=== PATIENT | male | born 1955 | race Caucasian/White ===

== ENCOUNTER → 2016-05-29 | Outpatient (CLI) | payer BC | LOC: GMAM 10:34 | PROVIDERS: ATTEND Family Medicine | DX: Z12.5 Encounter for screening for malignant neoplasm of prostate (principal) ==

== ENCOUNTER 2016-07-27 16:22 | Emergency (ER) | payer BC | END 2016-07-27 17:05 | disposition left against medical advice (07) | LOC: ER 16:22 | DX: Z53.21 Procedure and treatment not carried out due to patient leaving prior to being seen by health care provider (principal) ==

== ENCOUNTER → 2017-11-10 | Outpatient (CLI) | payer BC | LOC: GMAM 12:10 | PROVIDERS: ATTEND Family Medicine | DX: E29.1 Testicular hypofunction (principal) ==

== ENCOUNTER → 2018-06-05 | Outpatient (CLI) | payer BC | LOC: GMAM 10:49 | PROVIDERS: ATTEND Family Medicine | DX: Z12.5 Encounter for screening for malignant neoplasm of prostate (principal) ==

== ENCOUNTER → 2018-12-15 | Outpatient (CLI) | payer BC | LOC: GMAM 10:56 | PROVIDERS: ATTEND Family Medicine | DX: Z12.5 Encounter for screening for malignant neoplasm of prostate (principal) ==

== ENCOUNTER 2019-02-05 09:52 | Emergency (ER) | payer BC ==
[2019-02-05] MEDS ORDERED: ASPIRIN (CHEWABLE) 81 MG TAB PO ONE (10:03)
[2019-02-05 10:04] VITALS: TEMP 100.2
[2019-02-05] MEDS ORDERED: NITROGLYCERIN 0.4 MG 25 EA TAB SL ONE (10:05)
--- NOTE | 2019-02-05 10:10 | ED.PDOC ---
History of Present Illness - General Chief Complaint: Chest Pain/MD Stated Complaint: Chest discomfort Time Seen by Provider: 02/05/19 10:02 Source: patient, family Exam Limitations: no limitations Additional Information: Mister Herrera is a 63-year-old male who presents to the ED with chief complaint of chest pain. He indicates the pain began in the middle of the night last night after he got up to go to the bathroom and has persisted. Pain is 5 out of 10 in intensity and he describes it as a pressure. Pain waxes and wanes but has been constant. Mild shortness of breath, negative nausea, vomiting or abdominal pain. Patient indicates that he does not have an adverse heart history and that he has never had a heart attack or any diagnosed CAD. Patient has hypertension and is on labetalol but he has not taken his medication this morning. Patient is not a smoker. - History of Present Illness Allergies/Adverse Reactions: Allergies NO KNOWN ALLERGY Allergy (Verified 02/05/19 10:01) Home Medications: Ambulatory Orders Albuterol Sulfate [Proair Hfa] 2 puff INH QID 02/05/19 Amlodipine Besylate 10 mg PO DAILY 02/05/19 Atenolol [Tenormin] 50 mg PO DAILY 02/05/19 Losartan Potassium 100 mg PO DAILY 02/05/19 Montelukast [Singulair] 10 mg PO DAILY 02/05/19 Pantoprazole Sodium 40 mg PO DAILY 02/05/19 Review of Systems - Review of Systems Constitutional: States: no symptoms reported. Denies: chills, fever EENTM: States: no symptoms reported. Denies: blurred vision Respiratory: States: short of breath. Denies: orthopnea, wheezing Cardiology: States: see HPI. Denies: palpitations, syncope Gastrointestinal/Abdominal: States: no symptoms reported. Denies: nausea, vomiting Genitourinary: States: no symptoms reported. Denies: dysuria Musculoskeletal: States: no symptoms reported. Denies: back pain Skin: States: no symptoms reported Neurological: States: no symptoms reported. Denies: anxiety, headache, paresthesia Endocrine: States: no symptoms reported Hematologic/Lymphatic: States: no symptoms reported All other Systems: Reviewed and Negative Past Medical History (General) - Patient Medical History Hx Stroke: No Hx Asthma: No - Seasonal allergies Hx Congestive Heart Failure: No Hx Hypertension: Yes Hx Diabetes: No Hx Gastroesophageal Reflux: Yes Hx MRSA: No - Vaccination History Hx Tetanus, Diphtheria Vaccination: No Hx Influenza Vaccination: No Hx Pneumococcal Vaccination: No - Social History Hx Tobacco Use: No Hx Alcohol Use: Yes - Occasional beer Family Medical History - Family History Father Living Status: Age at (years of age): 57 Cause of : MD Physical Exam - Physical Exam General Appearance: Alert, Comfortable, No apparent distress Eyes, Ears, Nose, Throat Exam: normal ENT inspection, pharynx normal Neck: non-tender, full range of motion, supple, normal inspection Respiratory: chest non-tender, lungs clear, normal breath sounds, no respiratory distress, no accessory muscle use Cardiovascular/Chest: normal peripheral pulses, no edema, no gallop, no murmur, tachycardia Gastrointestinal/Abdominal: normal bowel sounds, non tender, soft, no organomegaly Extremity: normal range of motion, non-tender, normal inspection, no pedal edema Neurologic: counter helper II-XII nml as tested, no motor/sensory deficits, normal mood/affect Skin Exam: normal color, warm/dry Progress - Progress Progress: 02/05/19 1000 differential diagnoses to include but not limited to:ACS and MD pneumonia PE 02/05/19 12:27 Patient is feeling well at this time and is chest pain-free. His workup is unremarkable including his troponin EKG and chest x-ray. Patient's d-dimer is negative and there is low clinical concern for PE. Patient remains slightly tachycardic at 101 and patient indicates that this is from anxiety from being in the ED. Patient describes his pain as a heartburn and believes that his symptoms are heartburn related and not ACS related. he has not taken his heartburn medication today and indicates he will take his PPI when he gets home. Patient is a low risk HEART score (1 point age, 1 point risk factor, 1 point history) and I believe he is safe for discharge with follow-up outpatient. I have specifically discussed with patient need for close cardiology follow-up with stress testing. Patient indicates he had a stress test done approximately 5 years ago that was normal. I have given patient's outpatient referral to a senior electrical project manager. Vital signs stable, patient NAD and looks clinically well and is safe for discharge with outpatient follow-up. Follow-up instructions, discharge instructions and return to ED precautions discussed with patient, Patient voices understanding and willingness to comply with instructions. All laboratory and radiographic results have been discussed with the patient, and all questions answered.. Patient happy with plan. - EKG/XRAY/CT Comments: Sinus tach, rate 105, nl axis, nl QRS, nl ST segments, nl T waves. Departure - Departure Clinical Impression: Tachycardia, Chest pain, unspecified Time of Disposition: 12:24 Disposition: Discharge to Home or Self Care Condition: Good Departure Forms: ED Discharge - Pt. Copy, Patient Portal Self Enrollment Instructions: DI for Chest Pain, Chest Pain Referrals: Dmitriy Mann MD [Primary Care Provider] - 1-2 Weeks EDISON HAYNES MD [Consulting Staff] - 1-2 Weeks Home Medications: Ambulatory Orders Albuterol Sulfate [Proair Hfa] 2 puff INH QID 02/05/19 Amlodipine Besylate 10 mg PO DAILY 02/05/19 Atenolol [Tenormin] 50 mg PO DAILY 02/05/19 Losartan Potassium 100 mg PO DAILY 02/05/19 Montelukast [Singulair] 10 mg PO DAILY 02/05/19 Pantoprazole Sodium 40 mg PO DAILY 02/05/19
[2019-02-05] MEDS ORDERED: MORPHINE SULFATE INJ 10 MG/ML VIAL IV ONE (10:21)
--- NOTE | 2019-02-05 10:44 | RAD ---
EXAM DESCRIPTION: Chest,1 View CLINICAL HISTORY: 63 years Male, chest pain COMPARISON: Previous chest x-ray November 13, 2017 TECHNIQUE: AP portable chest. FINDINGS: Heart size is normal with normal pulmonary vascularity. No consolidating infiltrate. No pulmonary mass or worrisome nodule. No pneumothorax or pleural effusion. Bones are unremarkable. IMPRESSION: No acute process is identified in the chest. Electronically signed by: Nic Marquis MD 02/05/2019 10:42 AM CDT
[2019-02-05 12:12] VITALS: BP 146/94; O2SAT 97
== END 2019-02-05 12:30 | disposition home or self-care (01) ==
LOC: ER 09:52
DX: R07.9 Chest pain, unspecified (principal); R00.0 Tachycardia, unspecified; R06.02 Shortness of breath; I10 Essential (primary) hypertension; K21.9 Gastro-esophageal reflux disease without esophagitis; Z79.899 Other long term (current) drug therapy
CPT/HCPCS: 36415; 71045; 80053; 83605; 84484; 85025; 85379; 93005; J2270

== ENCOUNTER → 2020-02-10 | Outpatient (CLI) | payer BC | LOC: GMAM 14:22 | PROVIDERS: ATTEND Family Medicine | DX: Z12.5 Encounter for screening for malignant neoplasm of prostate (principal); E29.1 Testicular hypofunction ==